=== PATIENT | female | born 1945 | race Caucasian/White ===

== ENCOUNTER 2016-09-17 16:07 | Emergency (ER) | payer OTHER ==
[~2016-09-17] VITALS: Ht 165.1 cm; Wt 72.7 kg
[~2016-09-17 16:07] MED LIST: AMIT10TA6 PO; ASPI-556 PO; GLIP5 PO; LEVO25TA9 PO; LINA5TAB PO; METF500T4 PO
[2016-09-17 16:27] LABS: GLUCOSE,POINT OF CARE 210 MG/DL (70-110)
[2016-09-17 17:09] LABS: BASOPHILS % (AUTO) 0.5 % (0.0-2.0); EOSINOPHILS % (AUTO) 2.9 % (1.0-6.0); HEMATOCRIT 40.8 % (36-46); HEMOGLOBIN 13.8 g/dL (12.0-16.0); LYMPHOCYTES # (AUTO) 1.6 K/uL (1.0-4.8); LYMPHOCYTES % (AUTO) 22.3 % (22.0-44.0); MEAN CORPUSCULAR HEMOGLOBIN 30.7 pg (26.0-34.0); MEAN CORPUSCULAR HGB CONC 33.7 G/dL (31.0-37.0); MEAN CORPUSCULAR VOLUME 91 fL (80-100); MONOCYTES # (AUTO) 0.5 K/uL (0.1-1.0); MONOCYTES % (AUTO) 6.7 % (2.0-9.0); NEUTROPHILS # (AUTO) 4.9 K/uL (1.8-7.7); NEUTROPHILS % (AUTO) 67.6 % (40.0-70.0); PLATELET COUNT (AUTO) 242 K/uL (150-450); RED BLOOD CELL COUNT(AUTO) 4.49 MIL/uL (4.00-5.20); RED CELL DISTRIBUTION WIDTH 12.6 % (11.5-14.5); WHITE BLOOD COUNT (AUTO) 7.3 K/uL (4.5-11.0)
[2016-09-17 17:22] LABS: ANION GAP 12 mmol/L (8-16); CALCIUM, TOTAL 9.7 mg/dL (8.8-10.5); CARBON DIOXIDE 25 mmol/L (22-29); CHLORIDE 103 mmol/L (98-107); CREATININE 0.93 mg/dL (0.60-1.30); GLOMERULAR FILTR. RATE CALC 59 mL/min (>60); POTASSIUM 3.4 mmol/L (3.5-5.1); SODIUM SERUM 140 mmol/L (136-145); UREA NITROGEN, BLOOD 8 mg/dL (7-18)
[2016-09-17 17:36] LABS: B-TYPE NATRIURETIC PEPTIDE 35 pg/mL (0-100)
[2016-09-17 17:47] LABS: ALANINE AMINOTRANSFERASE 120 U/L (12-78); ALBUMIN 3.4 g/dL (3.4-5.0); ASPARTATE AMINOTRANSFERASE 66 U/L (15-37); BILIRUBIN,TOTAL 0.3 mg/dL (0.1-1.0); CREATINE KINASE MB 0.7 ng/mL (0-5); CREATINE KINASE, TOTAL 99 U/L (26-192); TOTAL PROTEIN, SERUM 7.4 g/dL (6.4-8.2)
[2016-09-17 17:58] VITALS: BP 152/73
== END 2016-09-17 18:07 | disposition home or self-care (01) ==
LOC: EMS 16:08
DX: M79.602 Pain in left arm (principal); E11.40 Type 2 diabetes mellitus with diabetic neuropathy, unspecified; E03.9 Hypothyroidism, unspecified; Z88.1 Allergy status to other antibiotic agents
CPT/HCPCS: 82962; 93005; 99285

== ENCOUNTER 2017-01-29 09:29 | Emergency (ER) | payer OTHER ==
[~2017-01-29] VITALS: Ht 165.1 cm; Wt 85.5 kg
[~2017-01-29 09:29] MED LIST changes: -AMIT10TA6 PO; -ASPI-556 PO
[2017-01-29] MEDS ORDERED: ATOR40TA71 PO (09:47)
[2017-01-29] MEDS ORDERED: ASPI81TA42 PO (09:47)
[2017-01-29] MEDS ORDERED: LISI10TA7 PO (09:47)
[2017-01-29 10:06] LABS: BASOPHILS # (AUTO) 0.02 K/uL (0.00-0.20); BASOPHILS % (AUTO) 0.2 % (0.0-2.0); EOSINOPHILS # (AUTO) 0.15 K/uL (0.00-0.70); EOSINOPHILS % (AUTO) 1.63 % (1.0-6.0); HEMATOCRIT 39.5 % (36-46); HEMOGLOBIN 13.6 g/dL (12.0-16.0); LYMPHOCYTES # (AUTO) 1.7 K/uL (1.0-4.8); LYMPHOCYTES % (AUTO) 18.4 % (22.0-44.0); MEAN CORPUSCULAR HEMOGLOBIN 30.6 pg (26.0-34.0); MEAN CORPUSCULAR HGB CONC 34.5 G/dL (31.0-37.0); MEAN CORPUSCULAR VOLUME 89 fL (80-100); MONOCYTES # (AUTO) 0.5 K/uL (0.1-1.0); MONOCYTES % (AUTO) 5.2 % (2.0-9.0); NEUTROPHILS # (AUTO) 6.9 K/uL (1.8-7.7); NEUTROPHILS % (AUTO) 74.6 % (40.0-70.0); PLATELET COUNT (AUTO) 226 K/uL (150-450); RED BLOOD CELL COUNT(AUTO) 4.45 MIL/uL (4.00-5.20); WHITE BLOOD COUNT (AUTO) 9.2 K/uL (4.5-11.0)
[2017-01-29 10:57] LABS: CALCIUM, TOTAL 9.9 mg/dL (8.8-10.5); CREATININE 1.02 mg/dL (0.60-1.30)
[2017-01-29] MEDS ORDERED: SODIUM CHLORIDE 0.9% 1,000 ML IV ONE (11:00)
[2017-01-29 11:07] LABS: ALBUMIN 3.7 g/dL (3.4-5.0); BILIRUBIN,TOTAL 0.6 mg/dL (0.1-1.0); TOTAL PROTEIN, SERUM 7.4 g/dL (6.4-8.2)
[2017-01-29 11:51] LABS: APPEARANCE,URINE CLEAR (CLEAR); GLUCOSE, URINE (UA) NEGATIVE (NEGATIVE); KETONES,URINE NEGATIVE (NEGATIVE); LEUKOCYTE ESTERASE ,URINE NEGATIVE (NEGATIVE); OCCULT BLOOD,URINE NEGATIVE (NEGATIVE); PH,URINE 6.5 (5.0-8.0); PROTEIN,URINE NEGATIVE (NEGATIVE)
[2017-01-29 11:54] LABS: ADD UA MICROSCOPIC YES
[2017-01-29 12:04] LABS: GLUCOSE,POINT OF CARE 242 MG/DL (70-110)
[2017-01-29] MEDS ORDERED: GLIP10 PO (12:05)
[2017-01-29] MEDS ORDERED: LEVO75 PO (12:05)
[2017-01-29] MEDS ORDERED: CHLO25TA3 PO (12:05)
[2017-01-29] MEDS ORDERED: CefTRIAXone 1 GM/DEXTROSE 50 ML IV ONE (12:15)
[2017-01-29 12:19] LABS: RBC,URINE None Seen /HPF (0-2); SQUAMOUS EPITHELIAL CELL,UR Rare /LPF (None Seen); WBC,URINE 0-2 /HPF (0-5)
[2017-01-29 13:17] VITALS: BP 139/77
== END 2017-01-29 13:22 | disposition home or self-care (01) ==
LOC: EMS 09:29
DX: N12 Tubulo-interstitial nephritis, not specified as acute or chronic (principal); I10 Essential (primary) hypertension; E03.9 Hypothyroidism, unspecified; E78.00 Pure hypercholesterolemia, unspecified; E11.9 Type 2 diabetes mellitus without complications; Z88.2 Allergy status to sulfonamides
CPT/HCPCS: 36415; 80053; 81001; 82962; 83690; 84484; 85025; 87077; 87086; 87186; 96361; 96374; 99284; J0696; J7030

== ENCOUNTER 2017-02-22 09:34 | Emergency (ER) | payer MEDICAID, OTHER ==
[~2017-02-22] VITALS: Ht 165.1 cm; Wt 85.5 kg
[~2017-02-22 09:34] MED LIST changes: +ASPI81TA42 PO; +ATOR40TA71 PO; +CHLO25TA3 PO; +GLIP10 PO; -GLIP5 PO; -LEVO25TA9 PO; +LEVO75 PO; +LISI10TA7 PO
[2017-02-22 10:01] LABS: GLUCOSE,POINT OF CARE 231 MG/DL (70-110)
[2017-02-22 10:20] LABS: APPEARANCE,URINE CLOUDY (CLEAR); GLUCOSE, URINE (UA) 100 mg/dL (NEGATIVE); KETONES,URINE NEGATIVE (NEGATIVE); LEUKOCYTE ESTERASE ,URINE SMALL (NEGATIVE); OCCULT BLOOD,URINE NEGATIVE (NEGATIVE); PROTEIN,URINE NEGATIVE (NEGATIVE)
[2017-02-22 10:28] LABS: ADD UA MICROSCOPIC YES
[2017-02-22 10:29] LABS: RBC,URINE None Seen /HPF (0-2); SQUAMOUS EPITHELIAL CELL,UR Few /LPF (None Seen); WBC,URINE 26-50 /HPF (0-5)
[2017-02-22 13:44] VITALS: BP 141/77
== END 2017-02-22 13:48 | disposition home or self-care (01) ==
LOC: EMS 09:35
DX: N39.0 Urinary tract infection, site not specified (principal); E11.40 Type 2 diabetes mellitus with diabetic neuropathy, unspecified; E78.00 Pure hypercholesterolemia, unspecified; I10 Essential (primary) hypertension; E03.9 Hypothyroidism, unspecified; Z88.2 Allergy status to sulfonamides; Z79.82 Long term (current) use of aspirin
CPT/HCPCS: 82962; 87086; 99284

== ENCOUNTER 2017-02-27 08:24 | Emergency (ER) | payer MEDICAID, OTHER ==
[~2017-02-27] VITALS: Ht 165.1 cm; Wt 85.5 kg
[2017-02-27 08:41] LABS: GLUCOSE,POINT OF CARE 215 MG/DL (70-110)
[2017-02-27 09:35] LABS: APPEARANCE,URINE CLEAR (CLEAR); GLUCOSE, URINE (UA) NEGATIVE (NEGATIVE); KETONES,URINE NEGATIVE (NEGATIVE); LEUKOCYTE ESTERASE ,URINE NEGATIVE (NEGATIVE); OCCULT BLOOD,URINE NEGATIVE (NEGATIVE); PROTEIN,URINE NEGATIVE (NEGATIVE)
[2017-02-27 09:41] LABS: ADD UA MICROSCOPIC NO
[2017-02-27 10:37] VITALS: BP 138/75
== END 2017-02-27 10:38 | disposition home or self-care (01) ==
LOC: EMS 08:26
DX: N39.0 Urinary tract infection, site not specified (principal); E11.40 Type 2 diabetes mellitus with diabetic neuropathy, unspecified; E78.00 Pure hypercholesterolemia, unspecified; I10 Essential (primary) hypertension; E03.9 Hypothyroidism, unspecified; Z88.2 Allergy status to sulfonamides
CPT/HCPCS: 82962; 99283

== ENCOUNTER 2018-08-03 22:30 | Emergency (ER) | payer MEDICAID, OTHER ==
[~2018-08-03] VITALS: Ht 165.1 cm; Wt 79.1 kg
[~2018-08-03 22:30] MED LIST changes: +ASPI81TA40 PO; -ASPI81TA42 PO; +METF-960 PO; -METF500T4 PO
[2018-08-03 23:03] LABS: GLUCOSE,POINT OF CARE 195 MG/DL (70-110)
[2018-08-03 23:57] VITALS: BP 134/80
[2018-08-04] MEDS ORDERED: ONDANSETRON HCL 4 MG TABLET PO ONE
[2018-08-04] MEDS ORDERED: LORazepam 1 MG TABLET PO ONE
== END 2018-08-04 00:17 | disposition home or self-care (01) ==
LOC: EMS 22:31
DX: R11.0 Nausea (principal); R19.7 Diarrhea, unspecified; R10.9 Unspecified abdominal pain; F41.9 Anxiety disorder, unspecified; E78.00 Pure hypercholesterolemia, unspecified; I10 Essential (primary) hypertension; E03.9 Hypothyroidism, unspecified; E11.40 Type 2 diabetes mellitus with diabetic neuropathy, unspecified; Z88.2 Allergy status to sulfonamides; Z79.899 Other long term (current) drug therapy; Z79.84 Long term (current) use of oral hypoglycemic drugs
CPT/HCPCS: 82962; 99283; Q0162

== ENCOUNTER 2019-01-12 09:27 | Emergency (ER) | payer BC, OTHER ==
[~2019-01-12] VITALS: Ht 165.1 cm; Wt 81.8 kg
[~2019-01-12 09:27] MED LIST changes: -ASPI81TA40 PO
[2019-01-12 09:56] LABS: GLUCOSE,POINT OF CARE 155 MG/DL (70-110)
[2019-01-12] MEDS ORDERED: ACETAMINOPHEN 160 MG/5 ML SUSPENSION UDCUP PO ONE (10:15)
[2019-01-12] MEDS ORDERED: IBUPROFEN 100 MG/5 ML SUSPENSION UDCUP PO ONE (10:15)
[2019-01-12 12:36] VITALS: BP 125/52
== END 2019-01-12 12:38 | disposition home or self-care (01) ==
LOC: EMS 09:28
DX: M25.531 Pain in right wrist (principal); M25.521 Pain in right elbow; E78.00 Pure hypercholesterolemia, unspecified; E03.9 Hypothyroidism, unspecified; E11.40 Type 2 diabetes mellitus with diabetic neuropathy, unspecified; E78.5 Hyperlipidemia, unspecified; E11.36 Type 2 diabetes mellitus with diabetic cataract; I10 Essential (primary) hypertension; F41.9 Anxiety disorder, unspecified; Z98.890 Other specified postprocedural states; Z79.899 Other long term (current) drug therapy; Z88.2 Allergy status to sulfonamides; W01.0XXA Fall on same level from slipping, tripping and stumbling without subsequent striking against object, initial encounter; Y93.01 Activity, walking, marching and hiking; Y92.89 Other specified places as the place of occurrence of the external cause; Y99.8 Other external cause status

== ENCOUNTER 2021-06-15 22:35 | Emergency (ER) | payer MEDICARE, OTHER ==
[~2021-06-15] VITALS: Ht 165.1 cm; Wt 76.0 kg
[~2021-06-15 22:35] MED LIST changes: +LISI10TA24 PO; -LISI10TA7 PO; +METF-1211 PO; -METF-960 PO
[2021-06-16 00:27] VITALS: BP 177/91
== END 2021-06-16 00:30 | disposition home or self-care (01) ==
LOC: EMS 22:43
DX: I10 Essential (primary) hypertension (principal); E11.9 Type 2 diabetes mellitus without complications; E03.9 Hypothyroidism, unspecified; E78.00 Pure hypercholesterolemia, unspecified; F41.9 Anxiety disorder, unspecified; Z79.84 Long term (current) use of oral hypoglycemic drugs; Z79.899 Other long term (current) drug therapy
CPT/HCPCS: 99283; Z7502

== ENCOUNTER 2024-03-14 11:43 | Emergency (ER) | payer MEDICARE, OTHER ==
[~2024-03-14] VITALS: Ht 165.1 cm; Wt 55.5 kg
[~2024-03-14 11:43] MED LIST changes: -GLIP10 PO; +GLIP10TA17 PO
[2024-03-14 11:47] VITALS: TEMP 98.5
[2024-03-14] MEDS ORDERED: EMPA10TA3 PO (11:49)
[2024-03-14 12:10] LABS: GLUCOMETER DEV NAME(LOC) ER.7; GLUCOSE,POINT OF CARE 101 MG/DL (70-110)
[2024-03-14 14:05] LABS: APPEARANCE,URINE CLEAR (CLEAR); BILIRUBIN,URINE NEGATIVE (NEGATIVE); COLOR,URINE YELLOW (YELLOW); GLUCOSE, URINE (UA) >=1000 mg/dL (NEGATIVE); KETONES,URINE 40-60 mg/dL (NEGATIVE); LEUKOCYTE ESTERASE ,URINE SMALL (NEGATIVE); NITRATE,URINE NEGATIVE (NEGATIVE); OCCULT BLOOD,URINE NEGATIVE (NEGATIVE); PH,URINE 5.5 (5.0-8.0); PROTEIN,URINE TRACE mg/dL (NEGATIVE); SPECIFIC GRAVITIY, URINE 1.031 (1.003-1.030); UROBILINOGEN,URINE <=1.0 mg/dL (<=1.0)
[2024-03-14 14:14] LABS: RBC,URINE None Seen /HPF (0-2)
[2024-03-14 14:15] LABS: BACTERIA,URINE Few /HPF (None Seen); CALCIUM OXALATE CRYSTALS,UR Few /LPF (None Seen); SQUAMOUS EPITHELIAL CELL,UR Few /LPF (None Seen); WBC,URINE 26-50 /HPF (0-5); YEAST,URINE Moderate /HPF (None Seen)
[2024-03-14] MEDS ORDERED: VIBE75TA PO (14:39)
[2024-03-14] MEDS ORDERED: TRAZ-252 PO (14:39)
[2024-03-14] MEDS ORDERED: HYDR25TA PO (14:39)
[2024-03-14] MEDS ORDERED: EMPA25TA3 PO (14:39)
[2024-03-14] MEDS ORDERED: LISI20TA24 PO (14:39)
[2024-03-14] MEDS ORDERED: CHOL25TA4 PO (14:39)
[2024-03-14] MEDS ORDERED: METO25 PO (14:39)
[2024-03-14] MEDS ORDERED: METH1TAB66 PO (14:39)
[2024-03-14] MEDS ORDERED: PREMC VG (14:39)
[2024-03-14] MEDS ORDERED: RISP0.5T46 PO (14:39)
[2024-03-14] MEDS ORDERED: FLUT16H NASAL (14:39)
[2024-03-14] MEDS: FLUCONAZOLE 10 MG/ML 5 ML SUSP ORAL.SYG PO ONE (15:06)
[2024-03-14 15:11] VITALS: BP 119/63; PULSE 76; RESP 16; O2SAT 97
== END 2024-03-14 15:12 | disposition home or self-care (01) ==
LOC: EMS 11:43
DX: R30.0 Dysuria (principal); B37.9 Candidiasis, unspecified; E03.9 Hypothyroidism, unspecified; E11.40 Type 2 diabetes mellitus with diabetic neuropathy, unspecified; E78.00 Pure hypercholesterolemia, unspecified; F41.9 Anxiety disorder, unspecified; I10 Essential (primary) hypertension; Z87.440 Personal history of urinary (tract) infections; Z79.899 Other long term (current) drug therapy; Z79.84 Long term (current) use of oral hypoglycemic drugs
CPT/HCPCS: 51701; 81001; 82962; 87086; 99283

== ENCOUNTER 2024-03-29 14:55 | Emergency (ER) | payer MEDICARE, OTHER ==
[~2024-03-29] VITALS: Ht 149.9 cm; Wt 50.0 kg
[~2024-03-29 14:55] MED LIST changes: -CHLO25TA3 PO; +CHOL25TA4 PO; +EMPA25TA3 PO; +FLUT16H NASAL; -GLIP10TA17 PO; +HYDR25TA PO; -LINA5TAB PO; -LISI10TA24 PO; +LISI20TA24 PO; +METH1TAB66 PO; +METO25 PO; +PREMC VG; +RISP0.5T46 PO; +TRAZ-252 PO; +VIBE75TA PO
[2024-03-29 15:03] VITALS: TEMP 97.6
[2024-03-29] MEDS ORDERED: ALPR0.255 PO (15:09)
[2024-03-29] MEDS ORDERED: MIRT-92 PO (15:09)
[2024-03-29 20:20] VITALS: BP 125/76; PULSE 79; RESP 18; O2SAT 99
== END 2024-03-29 23:26 | disposition left against medical advice (07) ==
LOC: EMS 14:55
DX: K59.00 Constipation, unspecified (principal); Z53.21 Procedure and treatment not carried out due to patient leaving prior to being seen by health care provider

== ENCOUNTER 2024-07-15 02:13 | Emergency (ER) | payer MEDICARE, OTHER ==
[~2024-07-15] VITALS: Ht 167.6 cm; Wt 55.9 kg
[~2024-07-15 02:13] MED LIST changes: +ALPR0.255 PO; -ATOR40TA71 PO; -CHOL25TA4 PO; -FLUT16H NASAL; -HYDR25TA PO; -LISI20TA24 PO; -METF-1211 PO; -METH1TAB66 PO; -METO25 PO; +MIRT-92 PO; -PREMC VG; -TRAZ-252 PO; -VIBE75TA PO
[2024-07-15 02:17] VITALS: TEMP 98.1
[2024-07-15] MEDS: SODIUM CHLORIDE 0.9% 500 ML IV ONE (03:15)
[2024-07-15 03:18] LABS: BASOPHILS % (AUTO) 0.4 % (0.0-2.0); EOSINOPHILS % (AUTO) 2.2 % (1.0-6.0); HEMATOCRIT 40.1 % (36-46); HEMOGLOBIN 13.5 g/dL (12.0-16.0); LYMPHOCYTES # (AUTO) 1.5 K/uL (1.0-4.8); LYMPHOCYTES % (AUTO) 30.4 % (22.0-44.0); MEAN CORPUSCULAR HEMOGLOBIN 30.5 pg (26.0-34.0); MEAN CORPUSCULAR HGB CONC 33.6 G/dL (31.0-37.0); MEAN CORPUSCULAR VOLUME 91 fL (80-100); MONOCYTES # (AUTO) 0.5 K/uL (0.1-1.0); PLATELET COUNT (AUTO) 214 K/uL (150-450); RED BLOOD CELL COUNT(AUTO) 4.42 MIL/uL (4.00-5.20); RED CELL DISTRIBUTION WIDTH 12.6 % (11.5-14.5); WHITE BLOOD COUNT (AUTO) 5.1 K/uL (4.5-11.0)
[2024-07-15 03:26] LABS: ANION GAP 10 mmol/L (8-16); CALCIUM, TOTAL 9.8 mg/dL (8.8-10.5); CARBON DIOXIDE 27 mmol/L (22-29); CHLORIDE 105 mmol/L (98-107); CREATININE 0.67 mg/dL (0.60-1.30); GLOMERULAR FILTR. RATE CALC > 60 mL/min (>60); GLUCOSE,RANDOM 134 mg/dL (70-110); POTASSIUM 3.6 mmol/L (3.5-5.1); SODIUM SERUM 142 mmol/L (136-145); UREA NITROGEN, BLOOD 8 mg/dL (7-18)
[2024-07-15 03:34] LABS: TROPONIN I-HIGH SENSITIVITY 7 ng/L (<51)
[2024-07-15 03:35] LABS: B-TYPE NATRIURETIC PEPTIDE 11 pg/mL (0-100)
[2024-07-15 04:02] VITALS: BP 149/82; PULSE 76; RESP 18; O2SAT 97
[2024-07-15 04:08] LABS: APPEARANCE,URINE CLEAR (CLEAR); BILIRUBIN,URINE NEGATIVE (NEGATIVE); COLOR,URINE LIGHT YELLOW (YELLOW); GLUCOSE, URINE (UA) NEGATIVE (NEGATIVE); KETONES,URINE NEGATIVE (NEGATIVE); LEUKOCYTE ESTERASE ,URINE NEGATIVE (NEGATIVE); NITRATE,URINE NEGATIVE (NEGATIVE); OCCULT BLOOD,URINE NEGATIVE (NEGATIVE); PROTEIN,URINE NEGATIVE (NEGATIVE); SPECIFIC GRAVITIY, URINE 1.004 (1.003-1.030); UROBILINOGEN,URINE <=1.0 mg/dL (<=1.0)
[2024-07-15 04:12] LABS: BACTERIA,URINE None Seen /HPF (None Seen); RBC,URINE None Seen /HPF (0-2); SQUAMOUS EPITHELIAL CELL,UR Few /LPF (None Seen); WBC,URINE None Seen /HPF (0-5)
== END 2024-07-15 05:10 | disposition home or self-care (01) ==
LOC: EMS 02:13
DX: F41.0 Panic disorder [episodic paroxysmal anxiety] (principal); G47.00 Insomnia, unspecified; F03.A18 Unspecified dementia, mild, with other behavioral disturbance; R06.02 Shortness of breath; I10 Essential (primary) hypertension; E78.00 Pure hypercholesterolemia, unspecified; E11.40 Type 2 diabetes mellitus with diabetic neuropathy, unspecified; E03.9 Hypothyroidism, unspecified; Z79.899 Other long term (current) drug therapy
CPT/HCPCS: 99285; 96360; 71045; 80048; 81001; 83880; 84484; 85025; 36415; 93005; J7040